=== PATIENT | female | born 1970 | race Hispanic/Latino ===

== ENCOUNTER → 2019-01-23 | Outpatient (CLI) | payer OTHER ==
[2019-01-23 08:27] LABS: EOSINOPHILS % (AUTO) 2.9 % (0.0-8.0); HEMATOCRIT 33.8 % (36-48); LYMPHOCYTES % (AUTO) 32.4 % (21.0-51.0); MEAN CORPUSCULAR HEMOGLOBIN 25.4 pg (27.0-33.0); MEAN CORPUSCULAR HGB CONC 32.7 g/dL (32.0-36.0); MEAN CORPUSCULAR VOLUME 77.6 fL (79-99); MONOCYTES % (AUTO) 6.1 % (3.0-13.0); NEUTROPHILS % (AUTO) 56.6 % (40.0-77.0); PLATELET COUNT (AUTO) 356 K/uL (130-400); RED BLOOD CELL COUNT(AUTO) 4.35 MIL/uL (4.00-5.50); RED CELL DISTRIBUTION WIDTH 15.7 % (11.0-15.5); WHITE BLOOD COUNT (AUTO) 7.2 K/uL (4.8-10.8)
[2019-01-23 08:40] LABS: APPEARANCE,URINE CLEAR (CLEAR); BILIRUBIN,URINE NEGATIVE (NEGATIVE); COLOR,URINE YELLOW (YELLOW); GLUCOSE, URINE (UA) NEGATIVE (NEGATIVE); KETONES,URINE NEGATIVE (NEGATIVE); LEUKOCYTE ESTERASE ,URINE MODERATE (NEGATIVE); NITRATE,URINE POSITIVE (NEGATIVE); OCCULT BLOOD,URINE MODERATE (NEGATIVE); PH,URINE 5.5 (5.0-8.0); PROTEIN,URINE 30 mg/dL (NEGATIVE); UROBILINOGEN,URINE 0.2 mg/dL (0.2-1.0)
[2019-01-23 08:43] LABS: ALBUMIN 3.4 g/dL (3.5-5.0); BILIRUBIN,TOTAL 0.4 mg/dL (0.2-1.0); CREATININE 0.7 mg/dL (0.5-1.5); POTASSIUM 4.2 mmol/L (3.5-5.1); TOTAL PROTEIN, SERUM 7.7 g/dL (6.0-8.3)
[2019-01-23 09:18] LABS: BACTERIA,URINE Moderate /HPF (None Seen); WBC,URINE TNTC /HPF (0-1)
[2019-01-23 09:44] LABS: ERYTHROCYTE SEDIMENTATION RATE 38 MM/HR (0-20)
== END | disposition home or self-care (01) ==
LOC: LAB 07:52
PROVIDERS: ATTEND Nurse Practitioner Family
DX: I10 Essential (primary) hypertension (principal)
CPT/HCPCS: 36415; 80053; 80061; 81001; 82306; 85025; 85651

== ENCOUNTER 2019-11-22 01:39 | Emergency (ER) | payer OTHER ==
[2019-11-22 01:53] LABS: BASOPHILS % (AUTO) 0.6 % (0.0-5.0); EOSINOPHILS % (AUTO) 1.3 % (0.0-8.0); HEMATOCRIT 36.7 % (36-48); LYMPHOCYTES % (AUTO) 38.1 % (21.0-51.0); MEAN CORPUSCULAR HEMOGLOBIN 29.9 pg (27.0-33.0); MEAN CORPUSCULAR HGB CONC 34.1 g/dL (32.0-36.0); MEAN CORPUSCULAR VOLUME 87.8 fL (79-99); MONOCYTES % (AUTO) 8.4 % (3.0-13.0); NEUTROPHILS % (AUTO) 51.5 % (40.0-77.0); PLATELET COUNT (AUTO) 241 K/uL (130-400); RED BLOOD CELL COUNT(AUTO) 4.18 MIL/uL (4.00-5.50); RED CELL DISTRIBUTION WIDTH 13.2 % (11.0-15.5); WHITE BLOOD COUNT (AUTO) 8.6 K/uL (4.8-10.8)
[2019-11-22 02:03] LABS: CREATININE 0.7 mg/dL (0.5-1.5)
[2019-11-22] MEDS ORDERED: KETOROLAC TROMETHAMINE 30MG/ML ONE (02:04)
[2019-11-22] MEDS ORDERED: MAG HYDROX/AL HYDROX/SIMETH ES 30 ML SUSP UDCUP ONE (02:04)
[2019-11-22] MEDS ORDERED: LIDOCAINE HCL 2% VISCOUS 15 ML UDCUP ONE (02:04)
[2019-11-22 02:06] LABS: INR 0.95 (0.85-1.15); PARTIAL THROMBOPLASTIN TIME 23.3 SEC (26.3-35.5); PROTHROMBIN TIME 10.3 SEC (9.6-11.6)
[2019-11-22 02:08] LABS: ALBUMIN 3.4 g/dL (3.5-5.0); BILIRUBIN,TOTAL 0.4 mg/dL (0.2-1.0); TOTAL PROTEIN, SERUM 6.8 g/dL (6.0-8.3)
== END 2019-11-22 04:49 | disposition home or self-care (01) ==
LOC: EDH 01:39
DX: R07.89 Other chest pain (principal); M94.0 Chondrocostal junction syndrome [Tietze]; Z90.49 Acquired absence of other specified parts of digestive tract; Z90.710 Acquired absence of both cervix and uterus
CPT/HCPCS: 36415; 71045; 80053; 82550; 84484 ×2; 85025; 85610; 85730; 93005; 96374; 99285; J1885

== ENCOUNTER → 2020-02-12 | Outpatient (CLI) | payer OTHER ==
[2020-02-12 09:59] LABS: EOSINOPHILS % (AUTO) 1.3 % (0.0-8.0); HEMATOCRIT 42.8 % (36-48); LYMPHOCYTES % (AUTO) 32.4 % (21.0-51.0); MEAN CORPUSCULAR HEMOGLOBIN 29.8 pg (27.0-33.0); MEAN CORPUSCULAR HGB CONC 32.5 g/dL (32.0-36.0); MEAN CORPUSCULAR VOLUME 91.6 fL (79-99); MONOCYTES % (AUTO) 8.5 % (3.0-13.0); NEUTROPHILS % (AUTO) 56.5 % (40.0-77.0); PLATELET COUNT (AUTO) 264 K/uL (130-400); RED BLOOD CELL COUNT(AUTO) 4.67 MIL/uL (4.00-5.50); RED CELL DISTRIBUTION WIDTH 12.6 % (11.0-15.5); WHITE BLOOD COUNT (AUTO) 6.2 K/uL (4.8-10.8)
[2020-02-12 10:15] LABS: APPEARANCE,URINE Cloudy (CLEAR); BILIRUBIN,URINE Negative (NEGATIVE); COLOR,URINE Dark Yellow (YELLOW); GLUCOSE, URINE (UA) Negative (NEGATIVE); KETONES,URINE Negative (NEGATIVE); LEUKOCYTE ESTERASE ,URINE Trace (NEGATIVE); NITRATE,URINE Negative (NEGATIVE); OCCULT BLOOD,URINE Negative (NEGATIVE); PROTEIN,URINE Negative (NEGATIVE); UROBILINOGEN,URINE 0.2 mg/dL (0.2-1.0)
[2020-02-12 10:53] LABS: ALBUMIN 3.6 g/dL (3.5-5.0); BILIRUBIN,TOTAL 1.8 mg/dL (0.2-1.0); CREATININE 0.7 mg/dL (0.5-1.5); POTASSIUM 4.1 mmol/L (3.5-5.1); THYROID STIMULATING HORMONE 1.09 uIU/mL (0.36-3.74)
[2020-02-12 11:07] LABS: BACTERIA,URINE Few /HPF (None Seen); MUCUS,URINE Few LPF (None Seen); RBC,URINE 0-1 /HPF (0-1); SQUAMOUS EPITHELIAL CELL,UR Few /HPF (0-2)
== END | disposition home or self-care (01) ==
LOC: LAB 08:52
PROVIDERS: ATTEND Nurse Practitioner Family
DX: Z13.29 Encounter for screening for other suspected endocrine disorder (principal); I10 Essential (primary) hypertension; R63.5 Abnormal weight gain; R73.09 Other abnormal glucose; E55.9 Vitamin D deficiency, unspecified
CPT/HCPCS: 36415; 80053; 80061; 81001; 82306; 82533; 82627; 82670; 82672; 82677; 82679; 83001; 83002; 83789; 84144; 84255; 84270; 84402; 84403; 84439; 84443; 84479; 84481; 84482; 84630; 85025; 85651; 86376; 86800

== ENCOUNTER 2020-04-02 22:16 | Emergency (ER) | payer OTHER ==
[2020-04-02 23:04] LABS: EOSINOPHILS % (AUTO) 2.2 % (0.0-8.0); HEMATOCRIT 39.1 % (36-48); LYMPHOCYTES % (AUTO) 38.9 % (21.0-51.0); MEAN CORPUSCULAR HEMOGLOBIN 29.6 pg (27.0-33.0); MEAN CORPUSCULAR HGB CONC 33.5 g/dL (32.0-36.0); MEAN CORPUSCULAR VOLUME 88.3 fL (79-99); MONOCYTES % (AUTO) 9.2 % (3.0-13.0); NEUTROPHILS % (AUTO) 48.6 % (40.0-77.0); PLATELET COUNT (AUTO) 269 K/uL (130-400); RED BLOOD CELL COUNT(AUTO) 4.43 MIL/uL (4.00-5.50); RED CELL DISTRIBUTION WIDTH 12.1 % (11.0-15.5); WHITE BLOOD COUNT (AUTO) 7.2 K/uL (4.8-10.8)
[2020-04-02 23:15] LABS: CREATININE 0.8 mg/dL (0.5-1.5); POTASSIUM 3.9 mmol/L (3.5-5.1)
[2020-04-02 23:20] LABS: ALBUMIN 3.6 g/dL (3.5-5.0); BILIRUBIN,TOTAL 0.3 mg/dL (0.2-1.0); TOTAL PROTEIN, SERUM 7.2 g/dL (6.0-8.3)
== END 2020-04-03 00:46 | disposition home or self-care (01) ==
LOC: EDH 22:16
DX: R07.89 Other chest pain (principal); R06.02 Shortness of breath; R05 Cough
CPT/HCPCS: 36415; 71045; 80053; 84484; 85025; 87804; 93005

== ENCOUNTER 2020-04-21 15:29 | Emergency (ER) | payer OTHER ==
[2020-04-21] MEDS ORDERED: LORAZEPAM 1 MG TABLET ONE (16:04)
[2020-04-21 16:10] LABS: APPEARANCE,URINE Clear (CLEAR); BILIRUBIN,URINE Negative (NEGATIVE); COLOR,URINE Yellow (YELLOW); GLUCOSE, URINE (UA) Negative (NEGATIVE); KETONES,URINE Negative (NEGATIVE); LEUKOCYTE ESTERASE ,URINE Negative (NEGATIVE); NITRATE,URINE Negative (NEGATIVE); OCCULT BLOOD,URINE Trace (NEGATIVE); PROTEIN,URINE Negative (NEGATIVE)
[2020-04-21 16:14] LABS: BASOPHILS % (AUTO) 0.7 % (0.0-5.0); EOSINOPHILS % (AUTO) 1.7 % (0.0-8.0); HEMATOCRIT 42.7 % (36-48); LYMPHOCYTES % (AUTO) 37.5 % (21.0-51.0); MEAN CORPUSCULAR HEMOGLOBIN 29.8 pg (27.0-33.0); MEAN CORPUSCULAR HGB CONC 33.5 g/dL (32.0-36.0); MONOCYTES % (AUTO) 8.4 % (3.0-13.0); NEUTROPHILS % (AUTO) 51.6 % (40.0-77.0); PLATELET COUNT (AUTO) 305 K/uL (130-400); RED CELL DISTRIBUTION WIDTH 12.3 % (11.0-15.5); WHITE BLOOD COUNT (AUTO) 8.2 K/uL (4.8-10.8)
[2020-04-21 16:18] LABS: AMPHET/METH SCREEN,URINE NEGATIVE (NEGATIVE); BARBITURATE SCREEN, URINE NEGATIVE (NEGATIVE); BENZODIAZEPINES SCREEN,URINE NEGATIVE (NEGATIVE); CANNABINOID SCREEN,URINE NEGATIVE (NEGATIVE); COCAINE SCREEN,URINE POSITIVE (NEGATIVE); OPIATE SCREEN,URINE NEGATIVE (NEGATIVE); PHENCYCLIDINE SCREEN,URINE NEGATIVE (NEGATIVE)
[2020-04-21 16:30] LABS: CARBON DIOXIDE 25 mmol/L (21-32); CHLORIDE 103 mmol/L (101-111); CREATININE 0.8 mg/dL (0.5-1.5); GLOMERULAR FILTR. RATE CALC 81 mL/min (>60); GLUCOSE,RANDOM 159 mg/dL (70-105); POTASSIUM 3.7 mmol/L (3.5-5.1); SODIUM SERUM 139 mmol/L (136-145); UREA NITROGEN, BLOOD 19 mg/dL (7-18)
[2020-04-21 16:30] LABS: BACTERIA,URINE Few /HPF (None Seen); RBC,URINE 0-1 /HPF (0-1); WBC,URINE 0-1 /HPF (0-1)
[2020-04-21 16:31] LABS: MUCUS,URINE Few LPF (None Seen); SQUAMOUS EPITHELIAL CELL,UR Few /HPF (0-2)
[2020-04-21 16:32] LABS: CALCIUM OXALATE CRYSTALS,UR Few /LPF (None Seen)
[2020-04-21 16:34] LABS: ALANINE AMINOTRANSFERASE 125 U/L (12-78); ALBUMIN 4.1 g/dL (3.5-5.0); ALCOHOL, BLOOD < 3 mg/dL (0-10); ASPARTATE AMINOTRANSFERASE 41 U/L (10-37); BILIRUBIN,TOTAL 0.4 mg/dL (0.2-1.0); TOTAL PROTEIN, SERUM 8.1 g/dL (6.0-8.3)
[2020-04-21 16:40] LABS: ACETAMINOPHEN < 1 mcg/mL (10-30)
== END 2020-04-21 21:10 | disposition home or self-care (01) ==
LOC: EDH 15:29 → EEVIPCON 15:29 → EDH 21:10
DX: F32.9 Major depressive disorder, single episode, unspecified (principal); F19.10 Other psychoactive substance abuse, uncomplicated; Z20.822 Contact with and (suspected) exposure to COVID-19; I10 Essential (primary) hypertension; F41.9 Anxiety disorder, unspecified; Z90.49 Acquired absence of other specified parts of digestive tract; Z90.710 Acquired absence of both cervix and uterus
CPT/HCPCS: 36415; 80053; 80305; 81001; 85025; 87426; 99283; U0003

== ENCOUNTER 2021-05-20 20:55 | Emergency (ER) | payer OTHER ==
[~2021-05-20] VITALS: Ht 165.1 cm; Wt 98.9 kg
[2021-05-20 20:59] VITALS: BP 115/89
[2021-05-20] MEDS ORDERED: LORAZEPAM 1 MG TABLET ONE (21:40)
[2021-05-20] MEDS ORDERED: CITA20TA17 PO (21:41)
[2021-05-20] MEDS ORDERED: HYDR-3421 PO (21:41)
[2021-05-20] MEDS ORDERED: LORAZEPAM 1 MG TABLET PO ONE (22:00)
== END 2021-05-20 21:50 | disposition home or self-care (01) ==
LOC: EDH 20:55
DX: F41.9 Anxiety disorder, unspecified (principal); F32.A Depression, unspecified; Z98.890 Other specified postprocedural states; Z79.899 Other long term (current) drug therapy

== ENCOUNTER 2021-06-19 18:54 | Emergency (ER) | payer OTHER ==
[~2021-06-19] VITALS: Ht 165.1 cm; Wt 97.5 kg
[~2021-06-19 18:54] MED LIST: CITA20TA17 PO; HYDR-3421 PO
[2021-06-19] MEDS ORDERED: ALBUTEROL 0.083% 2.5 MG/3 ML INH IH PRN (19:30)
[2021-06-19] MEDS ORDERED: AZITHROMYCIN 250 MG TABLET PO ONE (19:30)
[2021-06-19] MEDS ORDERED: AMOX/CLAV 875/125MG TAB PO ONE (19:30)
[2021-06-19] MEDS ORDERED: ACETAMINOPHEN WITH CODEINE 1 TAB TAB PO ONE (19:30)
[2021-06-19] MEDS ORDERED: PRED20TA3 PO (20:58)
[2021-06-19] MEDS ORDERED: AMOX1TAB16 PO (20:58)
[2021-06-19] MEDS ORDERED: ALBU8.5H8 IH (20:58)
[2021-06-19] MEDS ORDERED: D-ME1POW16 PO (20:58)
[2021-06-19 21:18] VITALS: BP 144/84
== END 2021-06-19 21:25 | disposition home or self-care (01) ==
LOC: EDH 18:54
DX: J40 Bronchitis, not specified as acute or chronic (principal); Z20.822 Contact with and (suspected) exposure to COVID-19; F41.9 Anxiety disorder, unspecified; F32.A Depression, unspecified; E66.9 Obesity, unspecified; Z68.35 Body mass index [BMI] 35.0-35.9, adult; Z79.52 Long term (current) use of systemic steroids; Z79.899 Other long term (current) drug therapy
CPT/HCPCS: 71045; 87635; 87880; 94640; 99284; C9803

== ENCOUNTER 2022-03-17 14:29 | Emergency (ER) | payer OTHER ==
[~2022-03-17] VITALS: Ht 165.1 cm; Wt 101.6 kg
[~2022-03-17 14:29] MED LIST changes: +ALBU8.5H8 IH; +AMOX1TAB16 PO; +D-ME1POW16 PO; +PRED20TA3 PO
[2022-03-17] MEDS ORDERED: ACETAMINOPHEN 500 MG TABLET ONE (15:18)
[2022-03-17 15:27] LABS: HEMATOCRIT 38.7 % (36-48); LYMPHOCYTES % (AUTO) 37.6 % (21.0-51.0); MEAN CORPUSCULAR HEMOGLOBIN 29.1 pg (27.0-33.0); MEAN CORPUSCULAR HGB CONC 33.1 g/dL (32.0-36.0); MONOCYTES % (AUTO) 8.4 % (3.0-13.0); NEUTROPHILS % (AUTO) 50.7 % (40.0-77.0); PLATELET COUNT (AUTO) 268 K/uL (130-400); RED CELL DISTRIBUTION WIDTH 12.4 % (11.0-15.5); WHITE BLOOD COUNT (AUTO) 7.1 K/uL (4.8-10.8)
[2022-03-17] MEDS ORDERED: ACETAMINOPHEN 500 MG TABLET PO ONE (15:30)
[2022-03-17 15:34] LABS: CREATININE 0.7 mg/dL (0.5-1.5); POTASSIUM 3.7 mmol/L (3.5-5.1)
[2022-03-17 15:39] LABS: ALBUMIN 3.4 g/dL (3.5-5.0)
[2022-03-17 15:56] VITALS: BP 113/71
[2022-03-17] MEDS ORDERED: HYD50 PO (16:25)
== END 2022-03-17 16:49 | disposition home or self-care (01) ==
LOC: EDH 14:29
DX: F41.8 Other specified anxiety disorders (principal); R42 Dizziness and giddiness; I10 Essential (primary) hypertension; E11.9 Type 2 diabetes mellitus without complications; Z90.710 Acquired absence of both cervix and uterus; Z79.2 Long term (current) use of antibiotics; Z79.899 Other long term (current) drug therapy
CPT/HCPCS: 36415; 70450; 80053; 84484; 85025; 93005

== ENCOUNTER 2025-01-05 06:14 | Emergency (ER) | payer OTHER ==
[~2025-01-05] VITALS: Ht 165.1 cm; Wt 95.3 kg
[~2025-01-05 06:14] MED LIST changes: +BENZ28CR TP; +ESTR10TA9 VG; +HYD50 PO; +SULF1TAB42 PO
--- NOTE | 2025-01-05 06:28 | ERN ---
ED Note History of Present Illness Stated Complaint: CP Chief Complaint: Chest Pain Time Seen by MD: 06:15 Dictation: Patient is a 54-year-old female with a past medical history of anxiety who presented to the ER complaining of chest pain, stated that she was watch TV at her home to our frontal presentation to the ER, when she felt pain in her chest the pain is localized in the middle of his chest, stated that it is pressure type pain. No radiation. Allergies: Coded Allergies: No Known Allergies (Unverified Allergy, Unknown, 04/02/19) Home Meds Active Scripts Estradiol (Estradiol) 10 Mcg Tablet, 10 MCG VG DAILY for 14 Days, #14 TAB Prov:NOHELIA HOU [facility] 08/23/23 Benzoca/Res/Aloe/Vit E/Vit A&D (Vagisil Cream) 20 %-3 % Cream..g., 28 GM TP DAILY, #28 G Prov:NOHELIA HOU 08/23/23 Sulfamethoxazole/Trimethoprim (Bactrim Ds Tablet) 800 Mg-160 Mg Tablet, 1 TAB PO BID for 7 Days, #14 TAB 0 Refills Prov:NOHELIA HOU 08/23/23 Hydroxyzine HCl (Atarax) 50 Mg Tab, 50 MG PO q6hr PRN for ANXIETY for 3 Days, #12 TAB Prov:EDWARD ROMERO [employer] 03/17/22 D-Methorphan/PE/Acetaminophen (Theraflu Ms Severe Cold Pckt) 1 Each Powd.pack, 1 EACH PO QIDP, #20 PACK Prov:LEIGH WAKEFIELD 06/19/21 Prednisone (Prednisone) 20 Mg Tablet, 40 MG PO DAILY for 5 Days, #10 TAB Prov:LEIGH WAKEFIELD 06/19/21 Albuterol Sulfate (Proair Hfa) 8.5 Gm Hfa.aer.ad, 2 PUFF IH QIDP, #1 INHALER Prov:LEIGH WAKEFIELD 06/19/21 Amoxicillin/Potassium Clav (Amox Tr-K Clv 875-125 mg Tab) 1 Each Tablet, 1 EACH PO BID for 10 Days, #20 TAB Prov:LEIGH WAKEFIELD 06/19/21 Hydroxyzine HCl (Hydroxyzine HCl) 25 Mg Tablet, 25 MG PO TIDP for anxiety, #45 TAB Prov:LEIGH WAKEFIELD 05/20/21 Citalopram Hydrobromide (Celexa) 20 Mg Tablet, 20 MG PO DAILY, #30 TAB Prov:LEIGH WAKEFIELD 05/20/21 Past Medical History Past Medical History: Anxiety, Depression, Diabetes-Type II, Hypertension Additional Past Medical Hx: Obesity Surgical History: Hysterectomy Family History: Negative Social History: Negative Review of System Dictation NEGATIVE EXCEPT PER HPI Constitutional: Negative for fever,chills, and weight loss Eyes: Negative for injury, pain,redness, and discharge ENT: Negative for injury,pain or swelling Cardiovascular: Chest pain Respiratory: Negative for shortness of breath, cough, and wheezing, Abdomen/GI: Negative for abdominal pain, nausea, vomiting, diarrhea, and constipation Back: Negative for injury and pain : Negative for injury, bleeding and discharge MS/Extremity: Negative for injury and deformity Skin: Negative for rash, and discoloration Neuro: Negative for headache, weakness, numbness, tingling, and seizure Psych: Negative for suicide ideation, homicidal ideation, and hallucinations Initial Vital Sign VS Vital Signs Date Time Temp Pulse Resp B/P (MAP) Pulse Ox O2 Delivery O2 Flow Rate FiO2 01/05/25 06:15 98.1 92 20 150/87 98 Room Air 01/05/25 06:22 0 21 Physical Exam Dictation General: awake, alert, NAD Head/Face: Normocephalic, atraumatic Eyes: PERRL, EOMI, vision at baseline ENT: oral cavity clear, TMs clear, no signs of infection Neck: Trachea midline, supple, no nuchal rigidity Cardiovascular: RRR, normal S1/S2, No MRGs, no JVD Respiratory: CTAB, no respiratory distress, No rales or wheezes Abdomen: Soft , no tender Skin: Warm, dry, normal turgor, no rash MS/Extremity: Pulses equal, no cyanosis, neurovascular intact, FROM Neuro: COAx4, GCS 15, strength 5/5, CN 2-12 intact, normal cerebellar exam, normal gait, Psych: Normal behavior, mood, and affect normal Results (Laboratory/Radiology) Laboratory/Radiology Laboratory Tests Test 01/05/25 06:20 01/05/25 08:56 White Blood Count 9.7 K/uL (4.8-10.8) Red Blood Count 4.82 MIL/uL (4.00-5.50) Hemoglobin 14.3 g/dL (12.0-16.0) Hematocrit 40.5 % (36-48) Mean Corpuscular Volume 84.0 fL (79-99) Mean Corpuscular Hemoglobin 29.7 pg (27.0-33.0) Mean Corpuscular Hemoglobin Concent 35.3 g/dL (32.0-36.0) Red Cell Distribution Width 12.2 % (11.0-15.5) Platelet Count 286 K/uL (130-400) Mean Platelet Volume 11.2 fL (7.5-10.5) H Immature Granulocyte % (Auto) 0.3 % (0-1) Neutrophils (%) (Auto) 52.5 % (40.0-77.0) Lymphocytes (%) (Auto) 38.2 % (21.0-51.0) Monocytes (%) (Auto) 7.5 % (3.0-13.0) Eosinophils (%) (Auto) 0.9 % (0.0-8.0) Basophils (%) (Auto) 0.6 % (0.0-5.0) Neutrophils # (Auto) 5.1 K/uL (1.8-7.7) Lymphocytes # (Auto) 3.7 K/uL (1.0-4.8) Monocytes # (Auto) 0.7 K/uL (0.1-1.0) Eosinophils # (Auto) 0.09 K/uL (0.00-0.70) Basophils # (Auto) 0.06 K/uL (0.00-0.20) Absolute Immature Granulocyte (auto 0.03 K/uL (0-1) Nucleated Red Blood Cells 0.0 % (0.0-0.19) Sodium Level 135 mmol/L (136-145) L Potassium Level 3.7 mmol/L (3.5-5.1) Chloride Level 99 mmol/L (101-111) L Carbon Dioxide Level 27 mmol/L (21-32) Blood Urea Nitrogen 11 mg/dL (7-18) Creatinine 0.7 mg/dL (0.5-1.0) Glomerular Filtration Rate Calc 104 mL/min (>90) Random Glucose 327 mg/dL (70-105) H Total Calcium 8.6 mg/dL (8.5-10.1) Total Creatine Kinase 124 U/L (21-232) # Troponin I High Sensitivity 5 ng/L (4-50) 5 ng/L (4-50) EKG Comment: Sinus rhythm rate 91, OH 156, QT 372. ED Course ED Course Orders Procedure Category Date Status Time Vital Signs Per CPOE 01/05/25 Transmitted Routine 06:16 Chest 1vw RAD 01/05/25 Resulted 06:16 12 Lead Ekg Tracing- EKG 01/05/25 Logged Technical 06:16 Oxygen By Nc/Pulse Ox CPOE 01/05/25 Transmitted 06:16 Maintain Iv CPOE 01/05/25 Transmitted 06:16 Iv Insertion CPOE 01/05/25 Transmitted 06:16 Cardiac Monitoring CPOE 01/05/25 Transmitted 06:16 Pulse Oximetry With CPOE 01/05/25 Transmitted Vs And Prn 06:16 Cbc With Differential LAB 01/05/25 Complete 06:16 Activity: Br W/Brp CPOE 01/05/25 Transmitted With Assist 06:16 Creatine Kinase, Total LAB 01/05/25 Complete 06:16 Troponin I High LAB 01/05/25 Complete Sensitivity 06:16 Urinalysis Profile LAB 01/05/25 In Process 06:16 Basic Metabolic Panel LAB 01/05/25 Complete 06:16 Lorazepam 2 Mg PHA 01/05/25 Complete (Ativan) 06:30 Troponin I High LAB 01/05/25 Complete Sensitivity 07:52 Troponin I High LAB 01/05/25 Logged Sensitivity 08:45 Current Medications Medications (Trade) Dose Ordered Sig/Chidi Route PRN Reason Start Time Stop Time Status Last Admin Dose Admin Lorazepam (AtiVAN) 0.5 mg ONCE ONCE IVP 01/05/25 06:30 01/05/25 06:31 DC 01/05/25 06:31 Vital Signs Date Time Temp Pulse Resp B/P (MAP) Pulse Ox O2 Delivery O2 Flow Rate FiO2 01/05/25 08:27 98.6 84 12 121/82 98 Room Air* 0 01/05/25 07:18 98.6 84 12 119/77 96 Room Air* 0 01/05/25 06:22 98.8 88 20 126/ 99 Room Air* 0 01/05/25 06:15 98.1 92 20 150/87 98 Room Air Medical Decision Making MDM Impression : Chest pain Anxiety Cardiac workup performed including laboratories and images. Initial EKG within normal limits sinus rhythm rate 91 Ativan 0.5 mg IV given DX & DISP Disposition: Discharge Departure Impression: Primary Impression: Anxiety disorder Additional Impression: Chest pain Condition: Stable Referrals: GEE DOVE (PCP) CONNIE RODRIGUEZ MD, WAGNER J MD Jan 05, 2025 06:28 DEVIN COTA MD Jan 05, 2025 09:38
[2025-01-05 06:37] LABS: IMMATURE GRANULOCYTE ABSOLUTE 0.03 K/uL (0-1); NUCLEATED RED BLOOD CELLS 0.0 % (0.0-0.19); PLATELET COUNT (AUTO) 286 K/uL (130-400); RED BLOOD CELL COUNT(AUTO) 4.82 MIL/uL (4.00-5.50); RED CELL DISTRIBUTION WIDTH 12.2 % (11.0-15.5); WHITE BLOOD COUNT (AUTO) 9.7 K/uL (4.8-10.8)
--- NOTE | 2025-01-05 06:46 | HMCIMG ---
EXAM: CR Chest, 1 View. CLINICAL HISTORY: CHEST PAIN COMPARISON: None provided. FINDINGS: LUNGS: The lungs show no infiltrate or other acute finding. PLEURAL SPACES: No evidence of pleural effusion or pneumothorax. MEDIASTINUM: The cardiomediastinal silhouette is within normal limits. BONES: No acute osseous abnormality. IMPRESSION: No acute cardiopulmonary pathology is evident. /[place]
[2025-01-05 06:57] LABS: CREATINE KINASE, TOTAL 124.0 U/L (21-232); CREATININE 0.7 mg/dL (0.5-1.0); GLOMERULAR FILTR. RATE CALC 104.0 mL/min (>90); GLUCOSE,RANDOM 327.0 mg/dL (70-105); SODIUM SERUM 135.0 mmol/L (136-145); UREA NITROGEN, BLOOD 11.0 mg/dL (7-18)
[2025-01-05 08:27] VITALS: O2SAT 98
[2025-01-05 09:59] LABS: APPEARANCE,URINE CLEAR (CLEAR); GLUCOSE, URINE (UA) >=1000 mg/dL (NEGATIVE); LEUKOCYTE ESTERASE ,URINE NEGATIVE Leu/uL (NEGATIVE); NITRATE,URINE NEGATIVE (NEGATIVE); OCCULT BLOOD,URINE NEGATIVE (NEGATIVE)
[2025-01-05 10:13] LABS: ADD UA MICROSCOPIC YES
[2025-01-05 10:14] LABS: SQUAMOUS EPITHELIAL CELL,UR RARE /HPF (0-2)
[2025-01-05 10:45] VITALS: BP 135/79; PULSE 87; RESP 13; TEMP 98.6
--- NOTE | 2025-01-05 14:05 | EKG ---
[facility] Test Date: 2025-01-05 Test Time: 06:17:08 Pat Name: ERNESTINA BRIDGES Department: 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
== END 2025-01-05 10:44 | disposition home or self-care (01) ==
LOC: EDH 06:14
DX: F41.9 Anxiety disorder, unspecified (principal); R07.89 Other chest pain; I10 Essential (primary) hypertension; E11.9 Type 2 diabetes mellitus without complications; F32.A Depression, unspecified; E66.9 Obesity, unspecified; Z68.35 Body mass index [BMI] 35.0-35.9, adult; Z79.52 Long term (current) use of systemic steroids; Z79.899 Other long term (current) drug therapy; Z90.710 Acquired absence of both cervix and uterus
CPT/HCPCS: 99285; 96374; 71045; 82550; 84484 ×2; 80048; 85025; 81001; 36415; 93005; J2060